=== PATIENT | female | born 2000 | race Caucasian/White ===

== ENCOUNTER → 2019-06-17 | Outpatient (CLI) | payer OTHER | LOC: RAD 12:37 | DX: M54.2 Cervicalgia (principal); V89.2XXA Person injured in unspecified motor-vehicle accident, traffic, initial encounter ==

== ENCOUNTER → 2019-07-02 | Outpatient (CLI) | payer OTHER | LOC: MRI 09:14 | DX: M54.2 Cervicalgia (principal); J34.1 Cyst and mucocele of nose and nasal sinus; Z79.899 Other long term (current) drug therapy ==